=== PATIENT | male | born 1950 | race Caucasian/White ===

== ENCOUNTER 2017-02-08 12:21 | Day surgery (SDC) | payer MEDICARE, OTHER ==
[~2017-02-08 12:21] MED LIST: ACETAMINOPHEN 325 MG TABLET PO PRN; ACETYLCHOLINE CHLORIDE 20 DROP KIT IO PRN; BUPIVACAINE HCL/PF 30 ML VIAL IJ PRN; CYCLOPENTOLATE HCL 20 DROP BTL RIGHTEYE PRN; DEXTROSE 5%-0.5 NORMAL SALINE 1,000 ML IV PRN; EPINEPHrine 1 MG/ML AMPUL IO PRN; HYALURONATE SODIUM 0.4 ML DISP.SYRIN IO PRN; HYALURONATE SODIUM 0.85 ML DISP.SYRIN IO PRN; LIDOCAINE HCL/PF 200 MG/5 ML AMPUL TP PRN; LIDOCAINE HCL/PF 5 ML VIAL IO PRN; NORMAL SALINE 3 ML BOX IV PRN; TETRACAINE HCL 150 DROP BTL OP PRN
--- OUTSIDE RECORDS SUMMARY | 2017-02-08 12:24 | XMS REPORT | Continuity of Care Document ---
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
[2017-02-08] MEDS: TROPICAMIDE 150 DROP BTL RIGHTEYE PRN ×3 (13:10→13:44)
[2017-02-08] MEDS: PHENYLEPHRINE HCL 50 DROP BTL RIGHTEYE PRN ×3 (13:10→13:44)
[2017-02-08] MEDS ORDERED: DEXTROSE 5%-0.5 NORMAL SALINE 1,000 ML IV ONE (13:44)
[2017-02-08] MEDS ORDERED: TETRACAINE HCL 150 DROP BTL RIGHTEYE ONE (14:25)
[2017-02-08 15:08] VITALS: BP 151/81
== END 2017-02-08 12:22 | disposition home or self-care (01) ==
LOC: AMB 12:21
PROVIDERS: ATTEND Ophthalmology
PROC: 08RJ3JZ Replacement of Right Lens with Synthetic Substitute, Percutaneous Approach (ICD-10-PCS; principal; 2017-02-08 14:00)
DX: H25.11 Age-related nuclear cataract, right eye (principal); I10 Essential (primary) hypertension; J44.9 Chronic obstructive pulmonary disease, unspecified; F17.200 Nicotine dependence, unspecified, uncomplicated; Z68.22 Body mass index [BMI] 22.0-22.9, adult

== ENCOUNTER 2017-02-22 09:34 | Day surgery (SDC) | payer MEDICARE, OTHER ==
[~2017-02-22 09:34] MED LIST changes: +CYCLOPENTOLATE HCL 20 DROP BTL LEFTEYE PRN; -CYCLOPENTOLATE HCL 20 DROP BTL RIGHTEYE PRN; -HYALURONATE SODIUM 0.85 ML DISP.SYRIN IO PRN
--- OUTSIDE RECORDS SUMMARY | 2017-02-22 09:38 | XMS REPORT | Continuity of Care Document ---
:1950 Author Organization [facility] ([facility]) Address [address] [place] [address] Phone [phone] Care Team Providers Name Role Phone Unavailable Primary Care Provider Unavailable Source Comments This disclosure is being made pursuant to the Care Everywhere program, applicable federal and state laws, and may not contain all informaitonavailable regarding this patient.[facility] ([facility]) Active Allergies and Adverse Reactions Not on [...]
[2017-02-22] MEDS: PHENYLEPHRINE HCL 50 DROP BTL LEFTEYE PRN ×3 (09:44→10:09)
[2017-02-22] MEDS: TROPICAMIDE 150 DROP BTL LEFTEYE PRN ×3 (09:44→10:09)
[2017-02-22] MEDS ORDERED: DEXTROSE 5%-0.5 NORMAL SALINE 1,000 ML IV ONE (10:30)
[2017-02-22] MEDS: HYALURONATE SODIUM 0.85 ML DISP.SYRIN IO PRN ×2 (10:45→11:03)
[2017-02-22 12:13] VITALS: BP 151/67
== END 2017-02-22 09:35 | disposition home or self-care (01) ==
LOC: AMB 09:34
PROVIDERS: ATTEND Ophthalmology
PROC: 08RK3JZ Replacement of Left Lens with Synthetic Substitute, Percutaneous Approach (ICD-10-PCS; principal; 2017-02-22 10:40)
DX: H26.9 Unspecified cataract (principal); I10 Essential (primary) hypertension; J44.9 Chronic obstructive pulmonary disease, unspecified; F17.200 Nicotine dependence, unspecified, uncomplicated; Z68.22 Body mass index [BMI] 22.0-22.9, adult